=== PATIENT | male | born 1990 | race African-American/Black ===

== ENCOUNTER 2016-11-21 11:07 | Emergency (ER) | payer OTHER ==
[~2016-11-21] VITALS: Ht 185.4 cm; Wt 108.9 kg
[~2016-11-21 11:07] MED LIST: GLIPIZIDE5 MG PO; GLUCOTROL5 MG PO; IBUPROFEN200 M1 PO; LOSARTAN POTASS50 MG PO; METFORMIN HCL500 MG PO; TYLENOL EXTRA500 MG PO
[2016-11-21 11:40] LABS: MCH 30.8 PG (29.0-34.0); MCHC 34.5 G/DL (30.0-36.0); MCV 89.2 FL (86-99); MEAN PLAT.VOLUME 9.9 uM^3 (9.0-12.4); PLATELET COUNT 267 K/uL (156-360); RBC DIS.WIDTH-CV 11.5 % (11.8-14.6); RBC DIS.WIDTH-SD 37.3 % (39-53); RED BLOOD COUNT 4.71 M/uL (4.00-5.50); WHITE BLOOD COUNT 5.4 K/uL (4.1-10.2)
[2016-11-21 11:53] LABS: CHLORIDE 105 mEq/L (99-109); SODIUM 139 mEq/L (136-147)
[2016-11-21 11:55] LABS: GLUCOSE 109 mg/dL (70-99)
[2016-11-21 11:56] LABS: ANION GAP 9 MEQ/L (2-14)
[2016-11-21 11:58] LABS: GFR ESTIMATE (CALCULATED) > 59 mL/min/; SERUM ETHYL ALCOHOL < 10 mg/dL
[2016-11-21 11:59] LABS: UREA NITROGEN (BUN) 18 mg/dL (9-23)
[2016-11-21 13:15] LABS: AMPHETAMINE NEGATIVE (500 ng/mL); BARBITURATES NEGATIVE (200 ng/mL); BENZODIAZEPINES NEGATIVE (150 ng/mL); COCAINE NEGATIVE (150 ng/mL); INTERNAL CONTROLS VALID? YES; METHADONE NEGATIVE (200 ng/mL); METHAMPHETAMINE NEGATIVE (500 ng/mL); OPIATES (MORPHINE) NEGATIVE (100 ng/mL); OXYCODONE NEGATIVE (100 ng/mL); PHENCYCLIDINE NEGATIVE (25 ng/mL); PROPOXYPHENE NEGATIVE (300 ng/mL); THC CANNABINOIDS NEGATIVE (50 ng/mL); TRICYCLIC ANTIDEPRESSANTS NEGATIVE (300 ng/mL)
[2016-11-21] MEDS ORDERED: ZOLOFT25 MG PO (16:36)
[2016-11-21 16:58] VITALS: BP 123/71
== END 2016-11-21 16:59 | disposition home or self-care (01) ==
LOC: EME 11:07
DX: F32.1 Major depressive disorder, single episode, moderate (principal); I10 Essential (primary) hypertension
CPT/HCPCS: 80048; 85027; 90839; 99281; 99285; G0480